=== PATIENT | female | born 1995 ===

== ENCOUNTER → 2023-05-01 09:50 | Outpatient (CLI) | payer BC, SELFPAY ==
--- NOTE | ~2023-05-01 | US_ITS ---
Pelvic ultrasound. Clinical History: Pelvic pain Technique: Realtime transabdominal scanning of the pelvis was performed. Color flow Doppler and Doppl er spectral analysis were performed. Findings: The uterus is anteverted. The endometrial stripe has a thickness of 10 mm. No focal mass i s identified. The right ovary measures 3.2 x 2.8 x 3.3 cm. No significant right ovarian or adnexal mass is seen. The left ovary measures 3.9 x 3.1 x 4.6 cm. No significant left ovarian or adnexal mass is seen. There is no evidence of free fluid in the cul de sac. Impression: No significant abnormality seen. Reviewed, dictated and finalized at location . Impression: No significant abnormality seen.
== END ==
PROVIDERS: PCP Advanced Practice Midwife; Visit Provider Advanced Practice Midwife
DX: R10.2 Pelvic and perineal pain (principal)
CPT/HCPCS: 76856